=== PATIENT | female | born 1995 | race African-American/Black ===

== ENCOUNTER 2016-03-23 16:27 | Emergency (ER) | payer BC ==
[~2016-03-23] VITALS: Ht 160 cm; Wt 63.0 kg
[2016-03-23 16:29] VITALS: BP 110/70; PULSE 80; RESP 16; TEMP 98.1; O2SAT 97
[2016-03-23] MEDS ORDERED: ZITHTAB PO (16:59)
--- NOTE | 2016-03-23 17:01 | PD ---
HPI Chief Complaint: ENT Complaint Time Seen by Provider: 16:56 Travel History International Travel<30 days: No Contact w/Intl Traveler<30days: No Traveled to known affect area: No History of Present Illness HPI 20-year-old female presents to the emergency department for evaluation of cold symptoms that a been ongoing for approximately 2-3 weeks as well as bilateral ear pain that she has had since flying 5 days ago. Patient denies any chest pain or shortness of breath. No abdominal pain. No vomiting. No fevers. Patient complains of cough, congestion, bilateral ear pain. She has no medical problems and takes no medications. She denies any chance of . PFSH Past Medical History ?: Not LMP: now Social History Alcohol Use: No Tobacco Use: No Substance Use: No Allergies-Medications (Allergen,Severity, Reaction): Coded Allergies: No Known Allergies (Unverified , 03/23/16) Reported Meds & Prescriptions Reported Meds & Active Scripts Active No Active Prescriptions or Reported Medications Review of Systems Except as stated in HPI: all other systems reviewed are Neg Physical Exam Narrative GENERAL: Well-developed well-nourished female patient, ambulatory. Afebrile. SKIN: Warm and dry. HEAD: Normocephalic. Atraumatic. ENT: Mucosa pink and moist. No erythema or exudates. No uvular edema. No uvular , palatal, or tonsillar deviation. Airway patent. Nasal turbinates appear normal without nasal blood, purulent drainage or septal hematoma. Left ear canal was with cerumen impaction. This was easily removed with curette. Bilateral tympanic membranes are clear without erythema or perforation. EYES: No scleral icterus. No injection or drainage. NECK: Supple, trachea midline. No JVD or lymphadenopathy. CARDIOVASCULAR: Regular rate and rhythm without murmurs, gallops, or rubs. RESPIRATORY: Breath sounds equal bilaterally. No accessory muscle use. Lungs sounds are clear to auscultation. GASTROINTESTINAL: Abdomen soft, non-tender, nondistended. MUSCULOSKELETAL: No cyanosis, or edema. Data Data Last Documented VS Vital Signs Date Time Temp Pulse Resp B/P Pulse Ox O2 Delivery O2 Flow Rate FiO2 03/23/16 16:37 03/23/16 16:29 98.1 80 16 97 Room Air [facility] Medical Decision Making Medical Screen Exam Complete: Yes Emergency Medical Condition: Yes Medical Record Reviewed: Yes Differential Diagnosis Otitis media versus otitis externa versus URI Narrative Course 20-year-old female presents to the emergency department for evaluation of cold symptoms and bilateral ear pain. Physical exam is reassuring. Patient is instructed to take Sudafed [id number] to help relieve ear pressure. She' ll be discharged with a prescription for azithromycin for URI. The patient is agreeable to this plan. Diagnosis Primary Impression: URI (upper respiratory infection) Qualified Code: J06.9 - Upper respiratory tract infection, unspecified type Referrals: Primary Care Physician call for appointment Patient Instructions: General Instructions, Upper Respiratory Infection (ED) Additional Instructions: Sudafed [id number]. Take antibiotic as instructed until gone. Follow-up with your primary care physician. Return to the emergency department for any acute worsening of symptoms. Med/Other Pt SpecificInfo: Prescription(s) given Scripts Azithromycin (Zithromax Z-Marty)250 Mg Odum447 Mg PO DIRECTED #1 DSPK Ref 0 500 MG (2 tabs) day 1, then 1 tab days 2-5. Prov:Erin Key 03/23/16 Disposition: 01 DISCHARGE HOME Condition: Stable Erin Key Mar 23, 2016 17:01
== END 2016-03-23 17:42 | disposition home or self-care (01) ==
LOC: NEPB 16:27
DX: J06.9 Acute upper respiratory infection, unspecified (principal)
CPT/HCPCS: 99283

== ENCOUNTER 2016-03-30 15:13 | Emergency (ER) | payer BC ==
[~2016-03-30] VITALS: Ht 160 cm; Wt 62.0 kg
[~2016-03-30 15:13] MED LIST: ZITHTAB PO
[2016-03-30 15:16] VITALS: BP 116/76; PULSE 82; RESP 14; TEMP 98.2; O2SAT 98
--- NOTE | 2016-03-30 17:08 | PD ---
HPI Chief Complaint: ENT Complaint Time Seen by Provider: 17:08 Travel History International Travel<30 days: No Contact w/Intl Traveler<30days: No Traveled to known affect area: No History of Present Illness HPI 20-year-old female presents to the ED for evaluation of decreased hearing. Onset approximately 3 weeks ago while she was flying back to school from a break at home. Patient denies ear pain, headache, fever, chills, sore throat, nasal congestion and rhinorrhea. Patient states that she was seen here, diagnosed with an upper respiratory infection, prescribed azithromycin. She endorses compliance with this medication. Denies chronic health problems, takes no daily medications. NKDA. PFSH Past Medical History ?: Not LMP: 03/21/16 Social History Alcohol Use: No Tobacco Use: No Substance Use: No Allergies-Medications (Allergen,Severity, Reaction): Coded Allergies: No Known Allergies (Unverified , 03/30/16) Reported Meds & Prescriptions Reported Meds & Active Scripts Active Zyrtec-D Allergy/Congestion 12 HR (Cetirizine-Pseudoephedrine 12 HR) 5-120 Mg Tab 1 Tab PO BID 15 Days Fluticasone Nasal [place] 50 Mcg/Act Naspr 50 Mcg EACH NARE BID 15 Days 50 mcg/spray Review of Systems Except as stated in HPI: all other systems reviewed are Neg Physical Exam Narrative GENERAL: Well-nourished, well-developed SKIN: Warm and dry. HEAD: Normocephalic. Atraumatic. EYES: No scleral icterus. No injection or drainage. PERRLA. EOMI. ENT: Bilateral cerumen impactions. Nasal mucosa is moist. Oropharynx without erythema, edema or exudate. NECK: Supple, trachea midline. No JVD or lymphadenopathy. CARDIOVASCULAR: Regular rate and rhythm without murmurs, gallops, or rubs. 2+ DP and radial pulses bilaterally. RESPIRATORY: Breath sounds clear and equal bilaterally. No accessory muscle use. GASTROINTESTINAL: Abdomen soft, non-tender, nondistended. + Bowel sounds MUSCULOSKELETAL: No cyanosis, or edema. Patient is ambulatory and moves extremities spontaneously. BACK: Nontender without obvious deformity. No CVA tenderness. Data Data Last Documented VS Vital Signs Date Time Temp Pulse Resp B/P Pulse Ox O2 Delivery O2 Flow Rate FiO2 03/30/16 15:16 98.2 82 14 116/76 98 MDM Medical Decision Making Medical Screen Exam Complete: Yes Emergency Medical Condition: Yes Differential Diagnosis Cerumen impaction versus ototoxicity versus ear effusion versus otitis externa versus otitis media versus other Narrative Course 20-year-old female presents to the ED for evaluation of decreased hearing. Onset approximately 3 weeks ago while she was flying back to school from a break at home. Patient denies ear pain, headache, fever, chills, sore throat, nasal congestion and rhinorrhea. Patient states that she was seen here, diagnosed with an upper respiratory infection, prescribed azithromycin and instructed to take Sudafed. She finished the antibiotics but never took Sudafed. Vitals reviewed. Physical exam reveals a well appearing black female in no acute distress. There are bilateral cerumen impactions obscuring the tympanic membranes. The bilateral external canals were flushed with a 50:50 mix of peroxide and water. This revealed a retracted tympanic membrane on the right side without signs of infection. The left tympanic membrane is pearly haq with mild effusion and no signs of infection. Flushing the ears did result in some improvement of the patient's hearing loss. This is eustachian tube dysfunction, likely secondary to previous URI combined with flying an airplane. She was prescribed Zyrtec and Flonase for the next 15 days. She is instructed to take these medications as prescribed, follow up with the ENT if her symptoms do not resolve or if they worsen. She indicated understanding of these instructions. She is amenable to this plan of care. She is stable and discharged home. Diagnosis Primary Impression: Hearing loss of both ears due to cerumen impaction Additional Impression: Eustachian tube dysfunction Qualified Code: H69.83 - Eustachian tube dysfunction, bilateral Referrals: Ear / Nose / Throat Specialist Patient Instructions: General Instructions, Serous Otitis Media (ED) Additional Instructions: Rest, hydrate. Take medications as prescribed. Follow-up with the ENT as discussed. Return to the ED for any urgent or emergent medical condition. Med/Other Pt SpecificInfo: Prescription(s) given Scripts Cetirizine-Pseudoephedrine 12 HR (Zyrtec-D Allergy/Congestion 12 HR)5-120 Mg Tab1 Tab PO BID 15 Days Ref 0 Prov:Moody Hussein MD 03/30/16 Fluticasone Nasal [place] 50 Mcg/Act Naspr50 Mcg EACH NARE BID 15 Days Ref 0 50 mcg/spray Prov:Moody Hussein MD 03/30/16 Disposition: 01 DISCHARGE HOME Condition: Stable Tomasa Kincaid Mar 30, 2016 17:08
[2016-03-30] MEDS ORDERED: FLUT50SP EACH NARE (18:07)
[2016-03-30] MEDS ORDERED: ZYRTTAB2 PO (18:07)
== END 2016-03-30 18:55 | disposition home or self-care (01) ==
LOC: NETRI 15:13
DX: H61.23 Impacted cerumen, bilateral (principal); H91.90 Unspecified hearing loss, unspecified ear; H69.83 Other specified disorders of Eustachian tube, bilateral
CPT/HCPCS: 99283